=== PATIENT | female | born 1990 | race Caucasian/White ===

== ENCOUNTER → 2017-07-26 09:03 | Outpatient (CLI) | payer OTHER, SELFPAY ==
--- NOTE | 2017-07-26 09:12 | US_ITS ---
US OB biophysical profile: Indication: ITS.REASON: US OB Complete BPP Growth- No prior OB CARE ORDERING PHYSICIAN: Roselia Palmer MD PATIENT AGE: 26 years FINDINGS: The following parameters are obtained: Average ultrasound age is 30w4d. Estimated due date by ultrasound is Due date. Estimated weight is 1538g BPD: 30w6d OFD: 30w5d HC: 30w4d AC: 30w1d FL: 30w3d heart rate: heart rate bpm. HC/AC: 1.08 (0.99-1.21) Cephalic index: 77% (70-86%) FL/BPD: 76% (71-87%) FL/AC: 22% (20-24%) Amniotic fluid index: 18 cm Qualitative AFV: 2 breathing movements: 2 Gross body movements: 2 Tone: 2 Biophysical profile score: 8/8 Doppler evaluation of the umbilical artery: SD ratio: 3.9 Resistive index: 0.75 No obvious anomalies evident. Placenta: Posterior with lateral rapid Cervix: Appears closed and measures 5 cm IMPRESSION: Live IUP at 30 weeks 4 days. Biophysical profile 8 of 8. LEVI upper normal at 18 cm. The S/D ratio is near 95th percentile
--- NOTE | 2017-07-26 09:12 | US_ITS ---
US OB /maternal detail: INDICATION: ITS.REASON: US OB Complete BPP Growth- No prior OB CARE ORDERING PHYSICIAN: Roselia Palmer MD PATIENT AGE: 26 years TECHNIQUE: ultrasound transabdominal scanning. COMPARISON: No previous relevant studies. FINDINGS: Single viable intrauterine gestation. Cephalic position. Placenta: Posterior placenta grade 1. There is average amount fluid. The cervix appears satisfactory. Closed and measuring 5 cm in length. Complete survey performed and was unremarkable on the submitted images as in PACS. No discrete anomalies identified on survey imaging by technologist. Active fetus. Three-vessel cord with satisfactory umbilical cord insertion. 4- chamber heart noted. Survey of brain & ventricles. Face and neck survey unremarkable. Diaphragm and chest views unremarkable. Abdomen: Both kidneys noted and unremarkable. Stomach noted and satisfactory. Spine: Survey of the spine satisfactory with no anomalies identified nor imaged. Both arms and legs noted. Amniotic Fluid: Adequate. Maternal adnexa: No significant findings. Measurements: Average ultrasound age 30w3d. Gestational Age 29w3d. Estimated due date by ultrasound age 0710/01/2017. Estimated weight 1515 grams. This is 63rd percentile BPD = 30w6d OFD = 30w5d HC = 30w4d AC = 29w6d FL = 30w3d Heart Rate = 130 Cerebellum = 31w2d Humerus = 30w4d HC/AC is 1.09 (0.99-1.21). CI is 77% (70-86%). FL/BPD is 76% (71-87%). FL/AC is 23% (20-24%). IMPRESSION: Single live fetus is present in the supine presentation with an average ultrasound age of 30 weeks and 3 days. No obvious anomalies. Estimated due date by ultrasound is 10/01/2017. Posterior grade 1 placenta. No evidence of previa or abruption. Please see above for detail.
== END ==
PROVIDERS: PCP Nurse Practitioner Obstetrics & Gynecology; Visit Provider Obstetrics & Gynecology
DX: Z36.0 Encounter for antenatal screening for chromosomal anomalies (principal); O09.30 Supervision of pregnancy with insufficient antenatal care, unspecified trimester
CPT/HCPCS: 76811; 76819

== ENCOUNTER → 2017-08-13 10:00 | Outpatient (CLI) | payer OTHER, SELFPAY ==
[2017-08-13 10:04] LABS: Microscopic, Urine URINE MICROSCOPIC (MICROSCOPIC)
[2017-08-13 10:19] LABS: Appearance,Urine SL CLOUDY (Clear); Bilirubin,Urine Negative (Negative); Blood, Urine Negative (Negative); Color,Urine YELLOW (Yellow); Glucose,Urine (UA) Negative (Negative); Ketones,Urine Negative (Negative); Leukocyte Esterase,Urine 3+ (Negative); Nitrate,Urine Negative (Negative); Protein,Urine Negative (Negative); Urobilinogen,Urine 0.2 EU/dl (0.2)
[2017-08-13 10:27] LABS: Bacteria,Urine 3+ /lpf
[2017-08-13 10:46] LABS: Basophils # 0.1 K/mm3 (0-0.2); Basophils % 0.5 % (0.1-2.0); Eosinophils # 0.2 K/mm3 (0.0-0.4); Eosinophils % 1.9 % (0.1-12.0); Hematocrit 38.4 % (37.0-47.0); Hemoglobin 12.2 g/dL (12.2-16.2); Lymphocytes # 1.9 K/mm3 (0.7-4.5); Lymphocytes % 17.2 K/mm3 (10-50); Mean Corpuscular HGB Conc 31.9 g/dL (31.8-35.4); Mean Corpuscular Hemoglobin 28.2 pg (27.0-31.2); Mean Corpuscular Volume 88.7 fl (81-99); Mean Platelet Volume 8.6 fl (7.4-10.4); Monocytes # 0.4 K/mm3 (0.1-1.0); Monocytes % 3.6 % (1.7-9.3); Neutrophils # 8.3 K/mm3 (1.8-7.8); Neutrophils % 76.9 % (37.0-80.0); Platelet Count 276 K/mm3 (142-424); Red Blood Count 4.33 M/mm3 (4.20-5.40); Red Cell Distribution Width 13.4 % (11.5-17.5); White Blood Count 10.8 K/mm3 (4.8-10.8)
[2017-08-13 11:05] LABS: Glucose,Fasting 85 mg/dL (60-105)
[2017-08-13 12:52] LABS: Glucose 1 Hour 148 mg/dL (74-106)
[2017-08-14 10:09] LABS: HIV Screen 4th Generation wRfx Non Reactive (Non Reactive); Rapid Plasma Reagin Ab Titer Non Reactive (NonRea<1:1); Rubella Antibodies, IgG 3.96 index (Immune >0.99)
[2017-08-14 14:39] LABS: Hepatitis B Surface Antigen Negative (Negative); Hepatitis C Antibody <0.1 s/co ratio (0.0-0.9)
== END ==
PROVIDERS: PCP Nurse Practitioner Obstetrics & Gynecology; Visit Provider Obstetrics & Gynecology
DX: Z34.90 Encounter for supervision of normal pregnancy, unspecified, unspecified trimester (principal)
CPT/HCPCS: 36415; 81001; 82951; 85025; 86592; 86703; 86762; 86850; 87086; 87340; 87380; G0432

== ENCOUNTER 2017-08-20 08:47 | Outpatient (CLI) | payer OTHER, SELFPAY ==
[2017-08-20 09:18] LABS: Glucose,Fasting 91 mg/dL (60-105)
[2017-08-20 10:45] LABS: Glucose 1 Hour 172 mg/dL (74-106)
[2017-08-20 12:03] LABS: Glucose 2 Hour 105 mg/dL (74-106)
--- NOTE | 2017-08-20 13:10 | PC.NURSE ---
08/20/17 1255 Rhogam 1500 units given IM R gluteus bharathi. Pt malka very well. No bleeding or prob noted at site. 1315 Pt discharged home. Pt denies c/o. No s/s reaction or prob noted.
[2017-08-20 13:18] LABS: Glucose 3 Hour 111 mg/dL (74-106)
== END 2017-08-20 13:14 | disposition home or self-care (01) ==
LOC: LAB 08:47
PROVIDERS: Visit Provider Obstetrics & Gynecology
DX: Z34.90 Encounter for supervision of normal pregnancy, unspecified, unspecified trimester (principal)
CPT/HCPCS: 36415; 82951; 96372; J2790

== ENCOUNTER → 2017-09-20 17:50 | Outpatient (REF) | payer OTHER, SELFPAY | LOC: LAB 17:50 | PROVIDERS: Visit Provider Nurse Practitioner Obstetrics & Gynecology | DX: Z34.90 Encounter for supervision of normal pregnancy, unspecified, unspecified trimester (principal) | CPT/HCPCS: 86403 ==

== ENCOUNTER 2017-09-24 18:11 | Inpatient (IN) ==
[2017-09-24 19:28] LABS: Appearance,Urine CLOUDY (Clear); Blood, Urine 2+ (Negative); Color,Urine DK YELLOW (Yellow); Glucose,Urine (UA) Negative (Negative); Ketones,Urine Negative (Negative); Leukocyte Esterase,Urine 2+ (Negative); Microscopic, Urine URINE MICROSCOPIC (MICROSCOPIC); PH,Urine 6.5 (5.0-8.5); Protein,Urine 1+ (Negative); Specific Gravity, Urine >= 1.030 (1.005-1.030)
[2017-09-24 19:35] LABS: Bilirubin,Urine Negative (Negative)
[2017-09-24 19:38] LABS: Amphetamine/Metha Screen,Urine Negative ng/mL (<1000); Barbiturates Screen,Urine Negative ng/mL (<200); Benzodiazepines Screen,Urine Negative ng/mL (<200); Cannabinoid Screen,Urine Negative ng/mL (<50); Cocaine Screen,Urine Negative ng/mL (<300); Methadone Screen,Urine Negative ng/mL (<300); Opiate Screen,Urine Negative ng/mL (<300); Phencyclidine Screen,Urine Negative ng/mL (<25)
[2017-09-24 19:40] LABS: RBC,Urine Occasional #/hpf (0-3)
[2017-09-24 19:41] LABS: Bacteria,Urine 3+ /lpf
[2017-09-24 20:27] LABS: Basophils # 0.1 K/mm3 (0-0.2); Basophils % 0.4 % (0.1-2.0); Eosinophils # 0.3 K/mm3 (0.0-0.4); Eosinophils % 2.3 % (0.1-12.0); Hematocrit 39.3 % (37.0-47.0); Hemoglobin 12.5 g/dL (12.2-16.2); Lymphocytes # 2.1 K/mm3 (0.7-4.5); Lymphocytes % 15.6 K/mm3 (10-50); Mean Corpuscular HGB Conc 31.8 g/dL (31.8-35.4); Mean Corpuscular Hemoglobin 27.5 pg (27.0-31.2); Mean Corpuscular Volume 86.6 fl (81-99); Mean Platelet Volume 8.7 fl (7.4-10.4); Monocytes # 0.4 K/mm3 (0.1-1.0); Monocytes % 2.7 % (1.7-9.3); Neutrophils # 10.8 K/mm3 (1.8-7.8); Platelet Count 298 K/mm3 (142-424); Red Blood Count 4.54 M/mm3 (4.20-5.40); Red Cell Distribution Width 13.6 % (11.5-17.5); White Blood Count 13.7 K/mm3 (4.8-10.8)
--- NOTE | 2017-09-24 22:16 | Progress Note ---
Internal Medicine - PN: Subj *Date: 09/24/17 *Time: 22:14 (This 26-year-old 4, para 3, Ab0 white female arrived in the labor room at 39 weeks of gestation in active labor at 5 cm of dilatation. She stated that she had had most of her care in [place] but has had several visits with Dr. Rosenthal. She is known to be group B strep positive, and Rh-. She did intravenous antibiotics were begun. And the patient progressed slowly over the next 2 hours with irregular contractions. An amniotomy has not revealed clear fluid, and an internal toco has been placed. She will be augmented with intravenous Pitocin. She does not wish an epidural at this time. ) Exam Vital signs and Labs for Last 24 Hours: Temp Pulse Resp BP Pulse Ox 97.8 F 89 18 116/75 98 09/24/17 18:35 09/24/17 18:35 09/24/17 18:35 09/24/17 18:35 09/24/17 18:35 Laboratory Results - last 24 hr 09/24/17 18:40: Membrane Rupture Negative 09/24/17 19:01: Urine Color Dk yellow, Urine Appearance Cloudy, Urine pH 6.5, Ur Specific [place] >= 1.030, Urine Protein 1+, Urine Glucose (UA) Negative, Urine Ketones Negative, Urine Blood 2+, Urine Nitrate Negative, Urine Bilirubin Negative, Urine Urobilinogen 1.0, Ur Leukocyte Esterase 2+ A, Urine RBC Occasional, Urine WBC 5-10, Ur Squamous Epith Cells 5-10, Urine Bacteria 3+ 09/24/17 19:01: Urine Opiates Screen Negative, Urine Methadone Screen Negative, Ur Barbituates Screen Negative, Ur Phencyclidine Scrn Negative, Ur Amphetamines Screen Negative, U Benzodiazepines Scrn Negative, Urine Cocaine Screen Negative , U Marijuana (THC) Screen Negative 09/24/17 20:13: WBC 13.7 H, RBC 4.54, Hgb 12.5, Hct 39.3, MCV 86.6, MCH 27.5, MCHC 31.8, RDW 13.6, Plt Count 298, MPV 8.7, Neut % (Auto) 79.0, Lymph % (Auto) 15.6, [place] % (Auto) 2.7, Eos % (Auto) 2.3, Baso % (Auto) 0.4, Neut # (Auto) 10.8 H, Lymph # (Auto) 2.1, [place] # (Auto) 0.4, Eos # (Auto) 0.3, Baso # (Auto) 0.1 I & O for Last 24 hours: Intake & Output 09/22/17 09/23/17 09/24/17 09/25/17 11:59 11:59 11:59 11:59 Weight 201 lb
--- NOTE | 2017-09-24 22:49 | Progress Note ---
Internal Medicine - PN: Subj *Date: 09/24/17 *Time: 22:49 (The patient is being augmented with intravenous Pitocin. Her cervix is now completely effaced, 8 cm, with the presenting vertex at 0 station. An internal electrode has been placed.) Exam Vital signs and Labs for Last 24 Hours: Temp Pulse Resp BP Pulse Ox 97.8 F 89 18 116/75 98 09/24/17 18:35 09/24/17 18:35 09/24/17 18:35 09/24/17 18:35 09/24/17 18:35 Laboratory Results - last 24 hr 09/24/17 18:40: Membrane Rupture Negative 09/24/17 19:01: Urine Color Dk yellow, Urine Appearance Cloudy, Urine pH 6.5, Ur Specific [place] >= 1.030, Urine Protein 1+, Urine Glucose (UA) Negative, Urine Ketones Negative, Urine Blood 2+, Urine Nitrate Negative, Urine Bilirubin Negative, Urine Urobilinogen 1.0, Ur Leukocyte Esterase 2+ A, Urine RBC Occasional, Urine WBC 5-10, Ur Squamous Epith Cells 5-10, Urine Bacteria 3+ 09/24/17 19:01: Urine Opiates Screen Negative, Urine Methadone Screen Negative, Ur Barbituates Screen Negative, Ur Phencyclidine Scrn Negative, Ur Amphetamines Screen Negative, U Benzodiazepines Scrn Negative, Urine Cocaine Screen Negative , U Marijuana (THC) Screen Negative 09/24/17 20:13: WBC 13.7 H, RBC 4.54, Hgb 12.5, Hct 39.3, MCV 86.6, MCH 27.5, MCHC 31.8, RDW 13.6, Plt Count 298, MPV 8.7, Neut % (Auto) 79.0, Lymph % (Auto) 15.6, [place] % (Auto) 2.7, Eos % (Auto) 2.3, Baso % (Auto) 0.4, Neut # (Auto) 10.8 H, Lymph # (Auto) 2.1, [place] # (Auto) 0.4, Eos # (Auto) 0.3, Baso # (Auto) 0.1 09/24/17 20:13: Blood Type A Negative, Antibody Screen Negative I & O for Last 24 hours: Intake & Output 09/22/17 09/23/17 09/24/17 09/25/17 11:59 11:59 11:59 11:59 Weight 201 lb
--- NOTE | 2017-09-24 23:54 | Procedure Note ---
- Delivery Note Delivery Date:: 09/24/17 Delivery Time:: 23:36 Anesthesia Type: None Was labor medically induced?: No Gestational age (weeks): 39 delivered prior to 39 weeks?: No Infant Gender: Male at 1 minute: 9 at 5 minutes: 9 Suction Catheter Type: Nicole AF:: Clear Delivery Procedure:: This 26-year-old 4, now Para 4, Ab0 white female was admitted at 39 weeks of gestation in active labor at 5 cm of dilatation. She was ultimately augmented with intravenous Pitocin, and labored without an epidural. She went steadily to completion at 2320 and delivered spontaneously, without an episiotomy, at 2336. There was no meconium, nor was there a nuchal cord. The baby's nasal and oropharynx were bulb suctioned, and the baby cried spontaneously on the perineum, as was delivered. The cord was clamped and cut, 3 vessels were noted to be within the cord, and cord blood was obtained. The cord pH was 7.41. The baby was handed into the arms of the attending RN, who assigned Apgars of 9 at 1 minute and 9 at 5 minutes to this 6 lbs. 12 oz., 18.25 inch male infant, born at 2336. The baby was recovered in excellent condition. There were no lacerations. The placenta delivered spontaneously at 2338, making a total time in labor 5 hours 38 minutes. The uterus was inspected and was felt to be clean, and was involuting well, with IV Pitocin running. The rectovaginal septum was intact at the close of the procedure. The sponge and needle counts correct. The estimated blood loss was 350 cc. The patient tolerated the procedure well, and was recovered in excellent condition. Her blood type is a Rh-, and she will be worked up for Rh immunoglobulin eligibility. Her rubella titer is immune. She plans to breast- feed. Placental Delivery Description: Spontaneous
[2017-09-25 06:06] LABS: Hematocrit 39.6 % (37.0-47.0); Hemoglobin 12.5 g/dL (12.2-16.2)
--- NOTE | 2017-09-25 06:39 | Progress Note ---
Internal Medicine - PN: Subj *Date: 09/25/17 *Time: 06:38 (This is day #1. The patient is afebrile. Vital signs stable. Abdomen soft. Lochia normal. Impression: Stable.) Exam Vital signs and Labs for Last 24 Hours: Temp Pulse Resp BP Pulse Ox 97.8 F 89 18 116/75 98 09/24/17 18:35 09/24/17 18:35 09/24/17 18:35 09/24/17 18:35 09/24/17 18:35 Laboratory Results - last 24 hr 09/24/17 18:40: Membrane Rupture Negative 09/24/17 19:01: Urine Color Dk yellow, Urine Appearance Cloudy, Urine pH 6.5, Ur Specific [place] >= 1.030, Urine Protein 1+, Urine Glucose (UA) Negative, Urine Ketones Negative, Urine Blood 2+, Urine Nitrate Negative, Urine Bilirubin Negative, Urine Urobilinogen 1.0, Ur Leukocyte Esterase 2+ A, Urine RBC Occasional, Urine WBC 5-10, Ur Squamous Epith Cells 5-10, Urine Bacteria 3+ 09/24/17 19:01: Urine Opiates Screen Negative, Urine Methadone Screen Negative, Ur Barbituates Screen Negative, Ur Phencyclidine Scrn Negative, Ur Amphetamines Screen Negative, U Benzodiazepines Scrn Negative, Urine Cocaine Screen Negative , U Marijuana (THC) Screen Negative 09/24/17 20:13: WBC 13.7 H, RBC 4.54, Hgb 12.5, Hct 39.3, MCV 86.6, MCH 27.5, MCHC 31.8, RDW 13.6, Plt Count 298, MPV 8.7, Neut % (Auto) 79.0, Lymph % (Auto) 15.6, [place] % (Auto) 2.7, Eos % (Auto) 2.3, Baso % (Auto) 0.4, Neut # (Auto) 10.8 H, Lymph # (Auto) 2.1, [place] # (Auto) 0.4, Eos # (Auto) 0.3, Baso # (Auto) 0.1 09/24/17 20:13: Blood Type A Negative, Antibody Screen Negative 09/24/17 23:46: Cord ABG pH 7.41 09/25/17 05:45: Hgb 12.5, Hct 39.6 I & O for Last 24 hours: Intake & Output 09/22/17 09/23/17 09/24/17 09/25/17 11:59 11:59 11:59 11:59 Weight 201 lb
[2017-09-26 08:47] VITALS: BP 113/56
--- NOTE | 2017-09-26 08:50 | Discharge Summary ---
General - General Admission date:: 09/24/17 Discharge date: 09/26/17 HPI HPI: She is a 26-year-old 4 para 3 who is 39 weeks gestational age. She came in in active labor and was found to be 5 cm dilated. As result of that she is admitted for delivery. Hospital Course Hospital Course: She progressed to full dilation and delivered spontaneously a liveborn male child at 11:30 PM on the evening of September 24, 2017. The baby weighed 6 lbs. 12 oz. and was 18-1/4 inches long. He had Apgars of 9 at 1 minute and 9 at 5 minutes. She has done well and has remained afebrile throughout her hospitalization. She is eating and drinking and ambulating. She is breast- feeding. Her lochia is normal. Her pain is well controlled. She is discharged home to follow-up with Dr. Palmer in approximately 2 weeks time. She will continue with her vitamins and iron. She was given a prescription for Percocet 5/325, 12 tablets. She has a negative blood and she has received RhoGam. She is rubella immune and was group B Streptococcus positive. She did receive IV antibiotics while in labor. Objective Vital signs: Temp Pulse Resp BP Pulse Ox 97.8 F 89 18 116/75 98 09/24/17 18:35 09/24/17 18:35 09/24/17 18:35 09/24/17 18:35 09/24/17 18:35 no acute distress Results Labs on day of discharge: Labs from last 24 hours 09/25/17 09/25/17 10:49 05:45 Screen Negative Baby's Rh Status Positive Rhogam Infusion Rhogam release DS: Diagnosis - Discharge Diagnosis (1) Normal delivery at term Status: Acute (2) Elevated glucose tolerance test Status: Acute Problem details: 1 hour: 148 (3) Obesity, Class II, BMI 35-39.9 Status: Acute (4) Status: Acute (5) care insufficient Status: Acute Problem details: late transfer from [place] @ 30w (6) Rh negative status during Status: Acute (7) 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 Discharge Plan - Patient Discharge Instructions ACTIVITY: No heavy lifting DIET: continue same diet Patient Instructions: Depression, Hemorrhage, [facility] Post Discharge Instructions - Follow up Plan Disposition: Home, Self-Long-Term Medications: Home Medications Medication Instructions Recorded Confirmed Type 1 tab PO QHS 07/23/17 09/25/17 History vitamin,calcium,gcsdkstb-foto-vrpkm acid tablet ranitidine 150 mg tablet 150 mg PO QHS 09/20/17 09/25/17 History Ferrous Sulfate 325 mg PO DAILY 09/25/17 09/25/17 History Prescriptions/Medication Reconciliation: New Oxycodone HCl/Acetaminophen [Percocet 5/325mg tablet] 1 - 2 tab PO Q4- 6H PRN #12 tab PRN Reason: Severe Pain Continue vitamin,calcium,cdhnscwj-ddba-wbcya acid tablet 1 tab PO QHS ranitidine 150 mg tablet 150 mg PO QHS Ferrous Sulfate 325 mg PO DAILY
== END 2017-09-26 11:40 | disposition home or self-care (01) ==
LOC: OBOUT 18:11 → OB 18:14
PROVIDERS: ADMIT Obstetrics & Gynecology; ATTEND Nurse Practitioner Obstetrics & Gynecology

== ENCOUNTER → 2022-06-27 11:21 | Outpatient (CLI) | payer MEDICAID, SELFPAY ==
[2022-06-27 13:55] LABS: HCG,Quantitative 24673 mIU/ml (0-5.42)
[2022-06-29 12:14] LABS: Progesterone 16.5 ng/mL (.)
== END ==
PROVIDERS: Visit Provider Nurse Practitioner Obstetrics & Gynecology
DX: N92.6 Irregular menstruation, unspecified (principal); Z32.00 Encounter for pregnancy test, result unknown
CPT/HCPCS: 36415; 84144; 84702

== ENCOUNTER → 2022-07-26 15:50 | Outpatient (CLI) | payer MEDICAID, SELFPAY ==
[2022-07-26 18:49] LABS: Basophils # 0.1 K/mm3 (0-0.2); Basophils % 0.5 % (0.1-2.0); Eosinophils # 0.3 K/mm3 (0.0-0.4); Hematocrit 38.3 % (37.0-47.0); Hemoglobin 12.6 g/dL (12.2-16.2); Lymphocytes # 2.8 K/mm3 (0.7-4.5); Lymphocytes % 17.6 % (10-50); Mean Corpuscular Hemoglobin 28.8 pg (27.0-31.2); Mean Corpuscular Volume 87.5 fl (81-99); Mean Platelet Volume 9.1 fl (7.4-10.4); Monocytes # 0.7 K/mm3 (0.1-1.0); Monocytes % 4.1 % (1.7-9.3); Neutrophils # 12.2 K/mm3 (1.8-7.8); Neutrophils % 75.8 % (37.0-80.0); Platelet Count 333 K/mm3 (142-424); Red Blood Count 4.38 M/mm3 (4.20-5.40); Red Cell Distribution Width 14.2 % (11.5-17.5); White Blood Count 16.1 K/mm3 (4.8-10.8)
[2022-07-26 18:52] LABS: MANUAL DIFFERENTIAL MANUAL DIFFERENTIAL (MANUAL DIFF)
[2022-07-26 20:40] LABS: Eosinophils % 1 % (0-3); Lymphocytes % 21 % (10-50); Monocytes % 2 % (2-9); Neutrophils % 68 % (42-76); Platelet Estimate Slight Increase; RBC Morphology Normal; Total Cells Counted 100
[2022-07-28 11:05] LABS: HSV 2 IgG, Type Spec <0.91 index (0.00-0.90); Rubella Antibodies, IgG 2.08 index (Immune >0.99)
[2022-07-28 11:12] LABS: HIV Screen 4th Generation wRfx Non Reactive (Non Reactive); Rapid Plasma Reagin Ab Titer Non Reactive (NonRea<1:1)
[2022-08-27 20:37] LABS: Hepatitis B Surface Antigen Negative; Hepatitis C Antibody Non Reactive
== END ==
PROVIDERS: Visit Provider Nurse Practitioner Obstetrics & Gynecology
DX: Z34.90 Encounter for supervision of normal pregnancy, unspecified, unspecified trimester (principal)
CPT/HCPCS: 36415; 85007; 85025; 86593; 86695; 86703; 86762; 86790; 86850; 87086; 87340; 87380; G0432

== ENCOUNTER → 2022-09-01 15:00 | Outpatient (CLI) | payer MEDICAID, SELFPAY ==
--- NOTE | 2022-09-01 15:04 | US_ITS ---
PROCEDURE: US OB >= 14 WEEKS FETUS CLINICAL INDICATION: US OB Greater than 14 wks for DATES COMPARISON: No exams were available for comparison FINDINGS: From her last menstrual period she is 16 weeks and 2 days. Single viable intrauterine gestation. Breech position. Placenta: Posteriorplacenta grade 0. There is average amount fluid. The cervix appears satisfactory. Closed and measuring 3.8 cm in length. Limited survey performed and was unremarkable on the submitted images as in PACS. No discrete anomalies identified on survey imaging by technologist. Those anatomical landmarks not noted in the report were either not visualized or not seen well. Active fetus. Initially breech presentation then turned to cephalic. Three-vessel cord. Heart rate activity noted. Survey of brain & ventricles Unremarkable. Choroid plexus appears normal. Face and neck survey unremarkable. Profile appears normal. Abdomen: Both kidneys noted and unremarkable. . Spine: Survey of the spine satisfactory with no anomalies identified nor imaged. Upper, thoracic and lower spine appear normal. Both arms and legs noted. Amniotic Fluid: Adequate. Measurements: Average ultrasound age 16weeks 3days. Gestational Age 16weeks 3days Estimated due date by ultrasound age 1202/13/2023. Estimated weight 141g BPD = 17weeks OFD = 16weeks 3days HC = 16weeks 2days AC = 16weeks 0 days FL = 16weeks 0 days Growth Percentile= 42Percent Heart Rate = 147bpm HC/AC is 1.25 CI is 0.82 FL/BPD is 0.56 FL/AC is 0.2 From her last menstrual period she is 16weeks 2days. An intrauterine gestation is present with measurements correlating to gestational age of 16weeks 3days. heart tones are present with an FHR of 147bpm. IMPRESSION: 1. Estimated due date by Ultrasound is 02/13/2023. This is consistent with her last menstrual period. 2. Limited anatomical scan appears normal. 3. Fetus is active with normal heart rate activity. Normal-appearing amniotic fluid. Dictated by: Tereso Rosenthal MD 09/03/2022 12:43 Tereso Rosenthal MD in [place] 09/03/2022 12:43
== END ==
PROVIDERS: PCP Nurse Practitioner Obstetrics & Gynecology; Visit Provider Nurse Practitioner Obstetrics & Gynecology
DX: O26.842 Uterine size-date discrepancy, second trimester (principal); Z3A.16 16 weeks gestation of pregnancy
CPT/HCPCS: 76805

== ENCOUNTER → 2022-10-06 12:13 | Outpatient (CLI) | payer MEDICAID, SELFPAY ==
--- NOTE | 2022-10-06 12:15 | US_ITS ---
PROCEDURE: US OB /MATERNAL DETAIL CLINICAL INDICATION: 20 week anatomy scan COMPARISON: US US OB >= 14 WEEKS FETUS from 09/01/2022 FINDINGS: Transabdominal sonographic images of the uterus were obtained. From her established due date she is 21 weeks 3 days. Single viable intrauterine gestation. Breech position. Placenta: Posteriorplacenta grade 1. There is average amount fluid. The cervix appears satisfactory. Closed and measuring 4.3 cm in length. Complete survey performed and was unremarkable on the submitted images as in PACS. No discrete anomalies identified on survey imaging by technologist. Active fetus. Three-vessel cord with satisfactory umbilical cord insertion. 4- chamber heart noted. LVOT, RVOT, aortic arch appear normal. Survey of brain & ventricles Unremarkable. Cerebellum, cisterna magna, thalamus appear normal. Face and neck survey unremarkable. Nose and lips appear normal. Nasion and profile appear normal. Diaphragm and chest views unremarkable. Abdomen: Both kidneys noted and unremarkable. Stomach and bladder noted and satisfactory. Spine: Survey of the spine satisfactory with no anomalies identified nor imaged. Upper, thoracic and lower spine appear normal. Both arms and legs noted. Amniotic Fluid: Adequate. Measurements: Average ultrasound age 20weeks 5days. Estimated due date by ultrasound is 02/18/2023. Estimated weight 377g BPD = 20weeks 2days OFD = 21weeks 2days HC = 20weeks 2days AC = 21weeks FL = 21weeks Growth Percentile= 16 Heart Rate = 135bpm Cerebellum = 20weeks 4days Humerus = 21weeks 4days HC/AC is 1.12 CI is 0.73 FL/BPD is 0.73 FL/AC is 0.22 IMPRESSION: 1. Viable fetus in the breech presentation with a posterior placenta grade 1. 2. The fluid is within normal limits. 3. Size and dates are congruent. 4. Anatomical scan appears normal. Dictated by: Tereso Rosenthal MD 10/07/2022 14:29 Tereso Rosenthal MD in [place] 10/07/2022 14:29
== END ==
PROVIDERS: PCP Nurse Practitioner Obstetrics & Gynecology; Visit Provider Nurse Practitioner Obstetrics & Gynecology
DX: Z34.92 Encounter for supervision of normal pregnancy, unspecified, second trimester (principal); Z3A.20 20 weeks gestation of pregnancy
CPT/HCPCS: 76811

== ENCOUNTER → 2022-11-28 16:13 | Outpatient (CLI) | payer MEDICAID, SELFPAY ==
[2022-11-28 16:39] LABS: Basophils # 0.1 K/mm3 (0-0.2); Basophils % 0.8 % (0.1-2.0); Eosinophils # 0.3 K/mm3 (0.0-0.4); Eosinophils % 2.2 % (0.1-12.0); Hematocrit 37.7 % (37.0-47.0); Hemoglobin 12.1 g/dL (12.2-16.2); Lymphocytes # 2.8 K/mm3 (0.7-4.5); Mean Corpuscular Hemoglobin 28.1 pg (27.0-31.2); Mean Corpuscular Volume 87.5 fl (81-99); Mean Platelet Volume 8.5 fl (7.4-10.4); Monocytes # 0.6 K/mm3 (0.1-1.0); Monocytes % 4.2 % (1.7-9.3); Neutrophils % 72.8 % (37.0-80.0); Platelet Count 322 K/mm3 (142-424); Red Blood Count 4.31 M/mm3 (4.20-5.40); Red Cell Distribution Width 14.3 % (11.5-17.5); White Blood Count 13.8 K/mm3 (4.8-10.8)
[2022-11-28 17:51] LABS: Glucose 1 Hour 155 mg/dL (74-100)
== END ==
LOC: LAB 16:13
PROVIDERS: Visit Provider Obstetrics & Gynecology
DX: O09.893 Supervision of other high risk pregnancies, third trimester (principal); Z3A.28 28 weeks gestation of pregnancy; Z67.91 Unspecified blood type, Rh negative
CPT/HCPCS: 36415; 82951; 85025; 96372

== ENCOUNTER → 2023-01-19 16:43 | Outpatient (CLI) | payer MEDICAID, SELFPAY | PROVIDERS: PCP Obstetrics & Gynecology; Visit Provider Obstetrics & Gynecology | DX: O24.419 Gestational diabetes mellitus in pregnancy, unspecified control (principal); Z3A.36 36 weeks gestation of pregnancy | CPT/HCPCS: 86403 ==

== ENCOUNTER → 2023-01-23 13:43 | Outpatient (CLI) | payer MEDICAID, SELFPAY ==
--- NOTE | 2023-01-23 13:50 | US_ITS ---
PROCEDURE: US OB BIOPHYSICAL PROFILE CLINICAL INDICATION: alessia/ gestational diabetes COMPARISON: FINDINGS: Transabdominal sonographic images of the uterus were obtained. From her established due date she is 36weeks 6days. The following parameters are obtained: Viable fetus in the cephalic presentation with a posterior placenta grade 2 Average ultrasound age is 35weeks 5days. Estimated due date by ultrasound is 02/22/2023. Estimated weight is 6lb 3oz, 2800 grams. Cervix measures 3.9 cm. heart rate: 124bpm bpm. BPD: 34 weeks 4 days HC: 36 weeks 3 days AC: 36 weeks 3 days FL: 35 weeks 3 days HC/AC: 0.99 FL/BPD: 0.81 FL/AC: 0.21 30 percentile Amniotic fluid index: 10.51cm, MVP 6.2 cm. Qualitative AFV: 2 breathing movements: 2 Gross body movements: 2 Tone: 2 Biophysical profile score: 8 No obvious anomalies evident.Kidneys, stomach, bladder, four-chamber view, three-vessel cord appear normal. IMPRESSION: 1. Viable fetus in the cephalic presentation with a posterior placenta grade 2. 2. The fluid is within normal limits with an amniotic fluid index of 10.51 cm, MVP 6.2 cm. 3. There has been good interval growth and the fetus is currently 30th percentile. 4. Biophysical profile is 8/8 with good breathing movement and movement seen. Dictated by: Tereso Rosenthal MD 01/23/2023 15:26 Tereso Rosenthal MD in [place] 01/23/2023 15:26
== END ==
PROVIDERS: PCP Obstetrics & Gynecology; Visit Provider Obstetrics & Gynecology
DX: O24.419 Gestational diabetes mellitus in pregnancy, unspecified control (principal); O28.8 Other abnormal findings on antenatal screening of mother
CPT/HCPCS: 76816; 76819

== ENCOUNTER 2023-01-30 12:01 | Outpatient (CLI) | payer MEDICAID, SELFPAY ==
[2023-01-30 12:25] VITALS: BMI 40.2
--- NOTE | 2023-01-30 12:25 | US_ITS ---
PROCEDURE: US OB BIOPHYSICAL PROFILE CLINICAL INDICATION: Non-reactive NST COMPARISON: Ultrasound 01/23/2023 FINDINGS: Transabdominal sonographic images of the uterus were obtained. From her established due date she is 37weeks 6days. The following parameters are obtained: Viable fetus in the cephalic presentation with a posterior placenta grade 2 Cervix measures 3.6 cm. heart rate: 127bpm bpm. Amniotic fluid index: 15.68cm MVP 6.0 cm. Qualitative AFV: 2 breathing movements: 0 Gross body movements: 2 Tone: 2 Biophysical profile score: 6 No obvious anomalies evident.Kidneys, bladder, stomach, profile, nasion, four-chamber heart, three-vessel cord appear normal. IMPRESSION: 1. Viable fetus in the cephalic presentation with a posterior placenta grade 2. 2. The fluid is within normal limits with an amniotic fluid index of 15.68 cm. MVP 6.0 cm. 3. Biophysical profile 6/8 with no breathing movement seen. The baby is however very active. 4. Dr. Valverde was notified of the ultrasound results. Dictated by: Tereso Rosenthal MD 01/30/2023 15:42 Tereso Rosenthal MD in [place] 01/30/2023 15:42
[2023-01-30 16:04] VITALS: BP 121/75; PULSE 81; RESP 17; TEMP 36.7; O2SAT 99; BMI 40.2
== END 2023-01-30 14:15 | disposition home or self-care (01) ==
LOC: OBOUT 12:02 → OB 12:04
PROVIDERS: Visit Provider Nurse Practitioner Obstetrics & Gynecology
DX: O26.893 Other specified pregnancy related conditions, third trimester (principal); Z3A.37 37 weeks gestation of pregnancy
CPT/HCPCS: 59025; 76819; G0463

== ENCOUNTER 2023-02-02 09:49 | Outpatient (CLI) | payer MEDICAID, SELFPAY ==
--- NOTE | 2023-02-02 10:01 | US_ITS ---
PROCEDURE: US OB BIOPHYSICAL PROFILE CLINICAL INDICATION: DECREASED MOVEMENT COMPARISON: FINDINGS: Transabdominal sonographic images of the uterus were obtained. From her established due date she is 38weeks 2days. The following parameters are obtained: Viable fetus in the cephalic presentation with a posterior placenta grade 2 heart rate: 129bpm bpm. Amniotic fluid index: 11.02cm, MVP 3.2 cm. Qualitative AFV: 2 breathing movements: 2 Gross body movements: 2 Tone: 2 Biophysical profile score: 8 No obvious anomalies evident.Kidneys, bladder, four-chamber heart, three-vessel cord appear normal. IMPRESSION: 1. Viable fetus in the cephalic presentation with a posterior placenta 2. Grade 2. The fluid is within normal limits with an amniotic fluid index of 11.02 cm. MVP 3.2 cm. 3. Biophysical profile 8/8 with good breathing movement seen and good movement seen. 4. Limited anatomical scan appears normal. Dictated by: Tereso Rosenthal MD 02/02/2023 11:36 Tereso Rosenthal MD in [place] 02/02/2023 11:36
[2023-02-02 10:49] VITALS: BP 118/72; PULSE 93; RESP 18; TEMP 36.7; O2SAT 95; BMI 40.2
== END 2023-02-02 11:10 | disposition home or self-care (01) ==
LOC: RAD 09:51 → OB 09:52
PROVIDERS: Visit Provider Obstetrics & Gynecology
DX: O36.8130 Decreased fetal movements, third trimester, not applicable or unspecified (principal); Z3A.38 38 weeks gestation of pregnancy
CPT/HCPCS: 59025; 76819; G0463

== ENCOUNTER 2023-02-07 03:40 | Inpatient (IN) | payer MEDICAID, SELFPAY ==
[2023-02-07 03:45] VITALS: BMI 40.2
[2023-02-07 04:20] VITALS: BP 120/56; PULSE 85; RESP 18; TEMP 36.5; O2SAT 98; BMI 40.2
[2023-02-07 04:22] LABS: Basophils # 0.1 K/mm3 (0-0.2); Basophils % 0.5 % (0.1-2.0); Eosinophils # 0.3 K/mm3 (0.0-0.4); Eosinophils % 2.4 % (0.1-12.0); Hematocrit 37.9 % (37.0-47.0); Hemoglobin 12.7 g/dL (12.2-16.2); Lymphocytes # 2.7 K/mm3 (0.7-4.5); Lymphocytes % 20.8 % (10-50); Mean Corpuscular HGB Conc 33.5 g/dL (31.8-35.4); Mean Corpuscular Hemoglobin 29.2 pg (27.0-31.2); Mean Corpuscular Volume 87.3 fl (81-99); Monocytes # 0.6 K/mm3 (0.1-1.0); Monocytes % 4.1 % (1.7-9.3); Neutrophils # 9.5 K/mm3 (1.8-7.8); Neutrophils % 72.1 % (37.0-80.0); Platelet Count 317 K/mm3 (142-424); Red Blood Count 4.34 M/mm3 (4.20-5.40); Red Cell Distribution Width 15.3 % (11.5-17.5); White Blood Count 13.2 K/mm3 (4.8-10.8)
[2023-02-07 04:46] LABS: POC Glucose,Bedside 108 (70-110)
[2023-02-07 05:03] LABS: Microscopic, Urine URINE MICROSCOPIC (MICROSCOPIC)
[2023-02-07 05:59] LABS: Appearance,Urine CLEAR (Clear); Bilirubin,Urine Negative (Negative); Blood, Urine Negative (Negative); Color,Urine YELLOW (Yellow); Glucose,Urine (UA) Negative (Negative); Ketones,Urine Negative (Negative); Leukocyte Esterase,Urine 1+ (Negative); Nitrate,Urine Negative (Negative); Protein,Urine Negative (Negative); Specific Gravity, Urine <= 1.005 (1.005-1.030); Urobilinogen,Urine 0.2 EU/dl (0.2)
[2023-02-07 06:37] LABS: Bacteria,Urine Trace /lpf; Squamous Epithelial Cell,Urine Occasional #/hpf (0-5)
--- NOTE | 2023-02-07 06:39 | EXP.HP ---
History of Present Illness *Admission Date: 02/07/23 *Reason for visit:: Induction *History of present illness: Carlin Purvis is a 32-year-old G7, P6 who presents at 39 weeks and 0 days gestation medically dictated induction of labor. Her RONALD is 02/14/2023 based on last menstrual period prior by 16-week ultrasound. Her has been complicated by gestational diabetes-insulin controlled, tobacco use in , and an ASCUS Pap smear at the beginning of . Patient failed her 1 hour GTT and has a history of gestational diabetes with her previous pregnancies. She was unable to complete her hour GTT just started checking her sugar. Glucose was noted to be elevated and she was initiated on 20 units of insulin at night which was later increased to 25 units and she was well-controlled on this regimen. On presentation the patient endorsed good movement. States that she was having irregular contractions the last 2 to 3 days. She denies any leaking fluid. A-, antibody negative, rubella immune, hepatitis B negative, hepatitis C negative, RPR negative, HIV negative, HSV-1 positive, HSV-2 negative 1 hour GTT: 155. Patient unable to complete 3-hour GTT. GBS negative [facility] Disclaimer: The information contained in this section may have been updated after the patient was seen, as this information can be updated by other users. Medical History Gestational diabetes mellitus (GDM) on insulin Maternal obesity affecting , antepartum Obesity Surgical History S/P cholecystectomy Family History Grandfather Cancer Mother Diabetes Social History (Updated 02/07/23 @ 05:16 by Chloe Song RN) Smoking Status: Current every day smoker tobacco type: cigarettes packs per day: 1 alcohol intake: never substance use type: denies use current occupational status: unemployed Travel in the last 8 weeks: None do you feel safe at home: Yes victim of physical abuse: No victim of emotional abuse: No victim of sexual abuse: No Review of Systems Review of Systems Review of systems (narrative): Review of Systems Constitutional: Denies fever, chills, and sweats Eyes: Denies vision change/ pain Respiratory: Denies cough and shortness of breath Cardiovascular: Denies chest pain and lightheadedness Gastrointestinal: Denies abdominal pain with contractions. Denies nausea, vomiting. Genitourinary: Denies dysuria and incontinence Musculoskeletal: Denies shoulder pain and back pain Neurological: Denies change in speech or headaches Meds Home Medications and Allergies Home Medications Medication Instructions Recorded Confirmed Type PNV 178-FA 180 mcg-om3 35 mg-dha tab PO .2 tabs qd 08/30/22 01/30/23 History 25 mg-epa 5 mg-fish oil chew tablet ( Gummies (zinc chelate)) ferrous sulfate 325 mg (65 mg 325 mg PO DAILY #30 tabs 08/30/22 01/30/23 Rx iron) tablet pen needle, diabetic 32 gauge x #100 ea 12/15/22 01/30/23 Rx 1/4 (Novofine 32) insulin syringe-needle U-100 0.3 #10 ea 12/26/22 01/30/23 History mL 30 gauge x 1/2 (BD Insulin Syringe Ultra-Fine) pen needle, diabetic 32 gauge x #1,200 ea 12/26/22 01/30/23 History 5/32 (BD Soledad 2nd Gen Pen Needle) insulin detemir U-100 100 unit/mL 25 unit (0.25 mL) SQ HS #15 mL 02/05/23 Rx (3 mL) subcutaneous pen (Levemir FlexPen) New Prescriptions to Start Prescriptions: Allergies Allergy/AdvReac Type Severity Reaction Status Date / Time levofloxacin [From LEVAQUIN] Allergy Unknown Verified 01/30/23 11:04 Exam Data for Last 24 hours Vital signs and Labs for Last 24 Hours: Temp Pulse Resp BP Pulse Ox O2 Del Method 97.7 F 85 18 120/56 L 98 Room Air 02/07/23 04:20 02/07/23 04:20 02/07/23 04:20 02/07/23 04:20
[2023-02-07 06:41] LABS: Amphetamine/Metha Screen,Urine Negative ng/ml (<1000)
[2023-02-07 06:42] LABS: Barbiturates Screen,Urine Negative ng/ml (<200)
[2023-02-07 06:43] LABS: Benzodiazepines Screen,Urine Negative ng/ml (<200); Cannabinoid Screen,Urine Negative ng/ml (<50)
[2023-02-07 06:44] LABS: Cocaine Screen,Urine Negative ng/ml (<300)
[2023-02-07 06:45] LABS: Methadone Screen,Urine Negative ng/ml (<300); Opiate Screen,Urine Negative ng/ml (<300)
[2023-02-07 06:46] LABS: Phencyclidine Screen,Urine Negative ng/ml (<25)
[2023-02-07 07:57] VITALS: BP 121/57; PULSE 76; RESP 17; TEMP 36.2; O2SAT 98
[2023-02-07 08:50] LABS: POC Glucose,Bedside 86 (70-110)
[2023-02-07 13:06] LABS: POC Glucose,Bedside 96 (70-110)
--- NOTE | 2023-02-07 17:04 | EXP.DN ---
Delivery Note Delivery Date:: 02/07/23 Delivery Time:: 16:36 Anesthesia Type: None Was labor medically induced?: Yes Induction method: per misoprostol protocol Gestational age (weeks): 39 delivered prior to 39 weeks?: No Infant Gender: Female at 1 minute: 7 at 5 minutes: 8 Delivery Procedure:: Preoperative diagnosis: 1. G7 P6 at 39 completed this weeks gestation, vertex 2. Rh positive 3. GBS negative 4. Gestational diabetes, insulin controlled 5. Tobacco use in 6. Obesity, BMI 40 Postoperative diagnosis: 1. G7, P6 at 39 completed this weeks gestation, vertex 2. Rh positive 3. GBS negative 4. Gestational diabetes, insulin controlled 5. Tobacco use in 6. Obesity, BMI 40 EBL: 350mL Specimen: 1. Cord blood 2. Placenta Findings: 1. Liveborn viable female : Renee. Apgars 7/8 at 1 and 5 minutes respectively. Weight: 7 pounds 4 ounces Complications: None Carlin Purvis is a 32-year-old G7, P6 who presented for medical induction of labor secondary to gestational diabetes today at 39 weeks and 0 days gestation. She was given 1 dose of Cytotec for cervical ripening and then started on Pitocin for induction. Her labor was augmented with artificial rupture of membranes revealing clear fluid. She quickly progressed to 7 cm following that and then complete very shortly after that. She followed a normal labor curve that was expedited after AROM. I was waiting on the unit for delivery. I was called to the delivery room and at this time the head had delivered. I quickly stepped in for delivery of the shoulders followed by body without dystocia or problems. The was bulb suctioned and was crying immediately following delivery. Greater than one minute was appreciated for delayed cord clamping. The umbilical cord was doubly clamped and cut. Cord blood was collected and sent for routine testing. The placenta delivered with cord traction and suprapubic contertraction. Pitocin was started and the placenta and cord were inspected. The placenta was noted to be intact, with a 3 vessel cord. The uterus was firm and bleeding was minimal. The perineum, vaginal berg, cervix, and paraurethral area were inspected thoroughly and noted to be hemostatic and free of laceration. There were 2 small abrasions on the bilateral labia which were hemostatic and did not require repair. This concluded the delivery. The patient tolerated the delivery well. All counts were correct by nursing. Mother and were doing well upon my leaving the delivery room. Placental Delivery Description: Spontaneous
[2023-02-07 20:35] VITALS: BP 113/67; PULSE 79; RESP 18; TEMP 36.6; O2SAT 96
[2023-02-08 04:43] VITALS: BP 114/56; PULSE 69; RESP 18; TEMP 36.8; O2SAT 97
[2023-02-08 07:12] LABS: Hematocrit 37.4 % (37.0-47.0); Hemoglobin 12.6 g/dL (12.2-16.2)
[2023-02-08 08:00] VITALS: BP 113/57; PULSE 69; RESP 18; TEMP 36.8; O2SAT 96
--- NOTE | 2023-02-08 08:17 | P.CONPHA_ITS ---
Pharmacy Intervention Comments: MEDICATION RECONCILIATION COMPLETED ON PATIENT USING EXTERNAL FILL HISTORY FROM PHARMACY AND LIST FROM EXERCISE PHYSIOLOGIST CERTIFIED OFFICE. -ESHA MCCURDYD
--- NOTE | 2023-02-08 08:17 | HMH.PHAINT1 ---
Pharmacy Intervention Comments: MEDICATION RECONCILIATION COMPLETED ON PATIENT USING EXTERNAL FILL HISTORY FROM PHARMACY AND LIST FROM CLASSIFIER TENDER OFFICE. -ESHA MCCURDYD
--- NOTE | 2023-02-08 10:30 | EXP.DC.SUM ---
General Admission date:: 02/07/23 Discharge date: 02/08/23 HPI HPI HPI: Carlin Purvis is a 32-year-old G7, P6 who presents at 39 weeks and 0 days gestation medically dictated induction of labor. Her RONALD is 02/14/2023 based on last menstrual period prior by 16-week ultrasound. Her has been complicated by gestational diabetes-insulin controlled, tobacco use in , and an ASCUS Pap smear at the beginning of . Patient failed her 1 hour GTT and has a history of gestational diabetes with her previous pregnancies. She was unable to complete her hour GTT just started checking her sugar. Glucose was noted to be elevated and she was initiated on 20 units of insulin at night which was later increased to 25 units and she was well-controlled on this regimen. On presentation the patient endorsed good movement. States that she was having irregular contractions the last 2 to 3 days. She denies any leaking fluid. A-, antibody negative, rubella immune, hepatitis B negative, hepatitis C negative, RPR negative, HIV negative, HSV-1 positive, HSV-2 negative 1 hour GTT: 155. Patient unable to complete 3-hour GTT. GBS negative Hospital Course Hospital Course Hospital Course: Carlin Purvis is a 32-year-old G7, P7 PPD#1 day #1 from an over an intact perineum. was complicated by gestational diabetes-insulin controlled, tobacco use in , and an ASCUS Pap smear at the beginning of . Delivery was uneventful and course has been uncomplicated. Patient reports she is ambulating, voiding, and tolerating p.o. without difficulty or dysuria. Her pain is well-controlled and her lochia is scant. She desires DC home today. Routine discharge instructions reviewed with patient in detail and she voiced understanding. Patient will follow-up for 2-week visit Exam Data for Last 24 hours Vital signs and Labs for Last 24 Hours: Temp Pulse Resp BP Pulse Ox O2 Del Method 98.2 F 69 18 113/57 L 96 Room Air 02/08/23 08:00 02/08/23 08:00 02/08/23 08:00 02/08/23 08:00 02/08/23 08:00 02/08/23 08:00 Laboratory Results - last 24 hr 02/07/23 04:15: Blood Type A Negative, Antibody Screen Negative, Crossmatch (G) See Detail 02/07/23 12:50: POC Glucose 96 02/08/23 06:58: Hgb 12.6, Hct 37.4 I & O for Last 24 hours: Intake & Output 02/05/23 02/06/23 02/07/23 02/08/23 23:59 23:59 23:59 23:59 Weight 220 lb Narrative: General: patient is alert oriented in no acute distress and responds appropriately to questions. Appears to be in minimal pain. Sitting up in the chair and doing well HEENT: NCAT, EOMI, moist mucous membranes, neck supple with full ROM Cardiovascular: RRR +S1/S2, no murmurs or rubs Pulmonary: Clear to auscultation bilaterally, nonlabored breathing, symmetric chest rise Abdominal: Fundus below the umbilicus, firm, and tenderness appropriate for the period. Extremities: trace edema, no tenderness or cyanosis noted Skin: Normal turgor, intact, warm. Negative for erythema, pallor, petechia, or lesions Neurologic: Negative for sensory or motor deficit Psychiatric: Normal affect, normal thought process, good judgment and insight, no depression or anxious mood appreciated. Constitutional Constitutional: no acute distress *Routine HEENT Exam Head: Present normocephalic Eye: Present EOMI and PERRL ENT: Present mucous membranes moist *Routine Neck Exam Neck: Present supple; Absent lymphadenopathy *Routine Respiratory Exam Respiratory: Present CTA bilaterally *Routine Cardiovascular Exam Cardiovascular: Present RRR *Routine Abdominal Exam Abdominal: Present soft and normoactive bowel sounds; Absent tenderness *Routine Extremities Exam Extremities: Absent cyanosis, clubbing or edema *Routine Skin Exam Skin: Present warm; Absent rash *Routine Neurological Exam Neurological: Present alert and oriented X3 Results Data Completed and Pendin
[2023-02-08 16:52] VITALS: BP 126/66; PULSE 85; RESP 18; TEMP 36.6; O2SAT 96
== END 2023-02-08 19:21 | disposition home or self-care (01) | DRG 807 ==
PROVIDERS: Admitting Provider Obstetrics & Gynecology; Visit Provider Obstetrics & Gynecology
DX: O99.214 Obesity complicating childbirth (principal); Z37.0 Single live birth; Z3A.39 39 weeks gestation of pregnancy; O24.424 Gestational diabetes mellitus in childbirth, insulin controlled; O99.334 Smoking (tobacco) complicating childbirth; F17.210 Nicotine dependence, cigarettes, uncomplicated
CPT/HCPCS: 59409; 36415; 59025; 80305; 81001; 82962; 85014; 85018; 85025; 85461; 86850; 87086; 94761; G0283; J2790

== ENCOUNTER 2023-12-17 09:49 | Outpatient (CLI) | payer MEDICAID, SELFPAY ==
[2023-12-17 12:27] LABS: HCG,Quantitative 5629 mIU/ml (0-5.42)
[2023-12-18 08:40] LABS: Progesterone 5.3 ng/mL (.)
== END 2023-12-17 23:59 | disposition home or self-care (01) ==
LOC: LAB 09:49
PROVIDERS: Visit Provider Obstetrics & Gynecology
DX: Z34.90 Encounter for supervision of normal pregnancy, unspecified, unspecified trimester (principal)
CPT/HCPCS: 36415; 84144; 84702

== ENCOUNTER 2023-12-26 12:30 | Outpatient (CLI) | payer MEDICAID, SELFPAY ==
--- NOTE | 2023-12-26 12:34 | US_ITS ---
PROCEDURE: US OB <= 14 WEEKS FETUS CLINICAL INDICATION: Check Viability/Confirmation of COMPARISON: No exams were available for comparison FINDINGS: Transvaginal sonographic images of the pelvis were obtained. From her last menstrual period she is 9weeks 5days. An intrauterine gestational sac is present with a pole with a crown-rump length of 0.88cm This correlates to a gestational age of 7 weeks 0 days. heart tones are absent. Yolk sac is noted. The yolk sac is collapsed. The right ovary is seen and appears normal. There are several small peripheral follicles. The left ovary is seen and appears normal. There is a follicle measuring 4.0 cm x 3.5 cm x 3.9 cm. There is no fluid in the cul-de-sac. IMPRESSION: 1. Nonviable fetus within the uterine cavity with a crown rump length of 7 weeks 0 days. 2. heart rate activity is not seen. 3. Gestational sac size is smaller than crown-rump length. 4. There is a follicle on the left ovary measuring 4.0 cm. 5. No fluid in the cul-de-sac. Dictated by: Tereso Rosenthal MD 12/26/2023 16:13 Tereso Rosenthal MD in OV 12/26/2023 16:13
[2023-12-26 14:34] LABS: HCG,Quantitative 2448 mIU/ml (0-5.42)
[2023-12-26] MEDS: RHO(D) IMMUNE GLOBULIN 1,500 UNIT (300MCG) SYRINGE 300 MCG IM (14:48)
[2023-12-26 14:51] VITALS: BP 116/73; PULSE 86; RESP 18; O2SAT 100
== END 2023-12-26 14:51 | disposition home or self-care (01) ==
LOC: RAD 12:31
PROVIDERS: Visit Provider Obstetrics & Gynecology
DX: O36.80X0 Pregnancy with inconclusive fetal viability, not applicable or unspecified (principal); O99.333 Smoking (tobacco) complicating pregnancy, third trimester; N93.9 Abnormal uterine and vaginal bleeding, unspecified
CPT/HCPCS: 36415; 76801; 84702; 96372; J2790